=== PATIENT | male | born 1940 | race Caucasian/White ===

== ENCOUNTER 2016-08-12 00:16 | Emergency (ER) | payer OTHER | END 2016-08-12 05:15 | disposition short-term general hospital (02) | LOC: ER 00:16 | DX: N28.9 Disorder of kidney and ureter, unspecified (principal); E11.69 Type 2 diabetes mellitus with other specified complication; R45.1 Restlessness and agitation; F41.9 Anxiety disorder, unspecified; E87.5 Hyperkalemia; J44.9 Chronic obstructive pulmonary disease, unspecified; I48.91 Unspecified atrial fibrillation; I50.9 Heart failure, unspecified; Z79.01 Long term (current) use of anticoagulants; Z79.84 Long term (current) use of oral hypoglycemic drugs; Z79.899 Other long term (current) drug therapy | CPT/HCPCS: 36415; 96361; 96365; 96366; 96376 ==